=== PATIENT | male | born 1955 | race Caucasian/White ===

== ENCOUNTER 2018-11-17 15:54 | Emergency (ER) | payer MEDICARE, OTHER ==
[~2018-11-17] VITALS: Ht 175.3 cm; Wt 79.4 kg
[2018-11-17] MEDS ORDERED: TAMIFLU75 MG PO (20:45)
== END 2018-11-17 21:02 | disposition home or self-care (01) ==
LOC: ED 15:54
DX: J10.1 Influenza due to other identified influenza virus with other respiratory manifestations (principal); F17.200 Nicotine dependence, unspecified, uncomplicated
CPT/HCPCS: 71046; 80053; 83605; 85025; 85610; 85730; 87502; 99283-25